=== PATIENT | female | born 1990 | race American Indian/Alaskan Native ===

== ENCOUNTER 2019-12-08 05:34 | Day surgery (SDC) | payer BC, OTHER ==
--- NOTE | 2019-12-07 17:23 | Short Stay Summary ---
Short Stay Documentation Date of service: 12/08/19 Narrative H&P: 29y/o with a history of worsening pelvic pain. The patient had imaging that demonstrated bilateral dermoid cysts measuring 7 and 10cm respectively. The patient attempted expectant management without resolution of her symptoms. Patient has been reassessed/reevaluated/re-examined. H&P has been reviewed. No interval changes. - History Principal diagnosis: Dermoid cysts Past Medical History: No medical history Past Surgical History: , Other (foot surgery) Social history: - Allergies and Medications Current Medications: Allergies No Known Allergies Allergy (Verified 12/07/19 11:24) Home Medications Medication Instructions Recorded Confirmed Last Taken Type Multivitamin [One-Daily 1 each PO DAILY 12/07/19 12/07/19 Unknown History Multi-Vitamin] Active Medications Celecoxib (Celebrex) 200 mg PO PREOP NR Stop: 12/08/19 23:59 Gabapentin (Gabapentin) 600 mg PO PREOP NR Stop: 12/08/19 23:59 Lactated Ringer's (Lactated Ringers) 1,000 mls @ 100 mls/hr IV DIRECT DELIA Stop: 12/08/19 23:59 Magnesium Oxide (Mag-Ox) 400 mg PO PREOP DELIA Stop: 12/08/19 23:59 Midazolam HCl (Versed) 2 mg IV PREOP NR Stop: 12/08/19 23:59 Scopolamine (Transderm-Scop) 1 each TD PREOP NR Stop: 12/08/19 23:59 - Physical exam General appearance: no acute distress Integumentary: no rash HEENT: Atraumatic Lungs: Clear to auscultation Breasts: deferred Heart: Regular rate Gastrointestinal: normal Female Genitourinary: deferred Rectal Exam: deferred Extremities: no ischemia - Brief post op/procedure progress note Date of procedure: 12/08/19 Pre-op diagnosis: Bilateral adnexal masses Post-op diagnosis: same Procedure: Robotic assisted ovarian cystectomy Anesthesia: MELONY Surgeon: TAWNYA SZYMANSKI Estimated blood loss: other (300 mL) Pathology: list (Dermoid cyst) Specimen disposition: to lab Condition: stable - Hospital course Hospital course: The patient was admitted the day of surgery underwent a robotic assisted bilateral ovarian cystectomy. Please see operative note for details of surgery. Her postoperative course was uneventful. - Disposition Condition at discharge: Good Disposition: [id number] TO HOME OR SELFCARE - Discharge Diagnoses (1) Dermoid cyst Status: Acute Short Stay Discharge Plan Activity: other (Pelvic rest for 1 week) Diet: regular Additional Instructions: Schedule follow-up with Dr. Szymanski in 2 to 4 weeks Prescriptions: Ibuprofen [Motrin] 800 mg PO Q8HR PRN #60 tablet PRN Reason: Pain , Severe (7-10) oxyCODONE /ACETAMINOPHEN [Percocet 5/325] 1 tab PO Q6HR PRN #20 tablet PRN Reason: Pain
[~2019-12-08 05:34] MED LIST: ceFAZolin/Water 2 GM/20 ML 2 GM/20 ML SYRINGE IV NR
[2019-12-08] MEDS ORDERED: MAGNESIUM OXIDE 400 MG TAB PO SCH (06:00)
[2019-12-08] MEDS ORDERED: CELECOXIB 200 MG CAP PO NR (06:00)
[2019-12-08] MEDS ORDERED: LACTATED RINGERS 1,000 ML IV SCH (06:00)
[2019-12-08] MEDS ORDERED: GABAPENTIN 300 MG CAP PO NR (06:00)
[2019-12-08] MEDS ORDERED: MIDAZOLAM 2 MG/2 ML INJ IV NR (06:00)
[2019-12-08] MEDS ORDERED: SCOPOLAMINE TRANSDERMAL PATCH 72 HR TD NR (06:00)
[2019-12-08] MEDS ORDERED: FAMOTIDINE 20 MG/2 ML INJ IV NR (07:18)
--- NOTE | 2019-12-08 07:18 | Anesthesia Consultation ---
Anesthesia Consult and Med Hx Date of service: 12/08/19 - Airway Anesthetic Teeth Evaluation: Good ROM Head & Neck: Adequate Mental/Hyoid Distance: Adequate Mallampati Class: Class II Intubation Access Assessment: Probably Good - Pre-Operative Health Status ASA Pre-Surgery Classification: ASA2 Proposed Anesthetic Plan: General - Pulmonary Hx Smoking: Yes (Former) Hx Asthma: Yes (Excercise induced, Last treated 4 years ago) - Central Nervous System Hx Psychiatric Problems: No - Hematic Hx Sickle Cell Disease: Yes (Trait only) - Other Systems Hx Alcohol Use: Yes (Occas) Hx Cancer: No Hx Obesity: Yes (BMI 34.5)
--- NOTE | 2019-12-08 07:18 | Anesthesia Day of Surgery ---
Anesthesia Day of Surgery - Day of Surgery Patient Examined: Yes Patient H&P Reviewed: Yes Patient is NPO: Yes
[2019-12-08] MEDS ORDERED: propofoL 200 MG/20 ML VIAL IV ONE (07:21)
[2019-12-08] MEDS ORDERED: LIDOCAINE MPF (2%) 20 MG/1 ML VIAL 5 ML ONE (07:21)
[2019-12-08] MEDS ORDERED: HYDROmorphone 1 MG/1 ML INJ ONE (07:21)
[2019-12-08] MEDS ORDERED: HYDROmorphone 1 MG/1 ML INJ IV PRN (07:22)
[2019-12-08] MEDS ORDERED: ONDANSETRON 4 MG/2 ML INJ IV PRN (07:22)
[2019-12-08] MEDS ORDERED: ROCURONIUM 50 MG/5 ML INJ IV ONE ×2 (07:22→08:33)
[2019-12-08] MEDS ORDERED: BUPIVACAINE/PF (0.5%) 5 MG/1 ML 30 ML VIAL INFILTRATI ONE ×3 (07:24→08:46)
[2019-12-08] MEDS ORDERED: NEOMY 40 MG/POLYMYXIN B 200,000 UNITS/ML (GU) AMPULE IR ONE (07:25)
[2019-12-08] MEDS ORDERED: PHENYLEPHRINE/NS 1,000 MCG/10 ML SYRINGE (OR USE) IV ONE (08:08)
[2019-12-08] MEDS ORDERED: SODIUM CHLORIDE 0.9% IRR 1,500 ML BOTTLE IR ONE (08:46)
[2019-12-08] MEDS ORDERED: SODIUM CHLORIDE 0.9% IRRIG SOLN 2000 ML IR ONE (08:46)
[2019-12-08] MEDS ORDERED: GLYCOPYRROLATE 0.4 MG/2 ML INJ ONE (09:42)
[2019-12-08] MEDS ORDERED: NEOSTIGMINE 10MG/10 ML INJ MDV ONE (09:42)
[2019-12-08] MEDS ORDERED: ONDANSETRON 4 MG/2 ML INJ ONE (09:42)
[2019-12-08] MEDS ORDERED: KETOROLAC 30 MG/1 ML INJ ONE (09:42)
--- NOTE | 2019-12-08 09:50 | Operative Report ---
Operative Report Operative Report: Date of surgery: December 08, 2019 Preoperative diagnoses: Bilateral dermoid cysts; chronic pelvic pain Postoperative diagnoses: Same as above Procedure: Robotic assisted bilateral ovarian cystectomy Surgeon: Karine Montoya M.D. Price Economist: Neli Garzon Anesthesia: Gen. endotracheal anesthesia Estimated blood loss: 300 mL Pathology: Dermoid cyst Indication: 29-year-old -1-1-1 with a history of chronic pelvic pain and bilateral dermoid cyst. Pelvic ultrasound demonstrated a 7 cm and 10 cm bilateral ovarian dermoid tumors. Procedure: The patient was taken to the operating room and given general endotracheal anesthesia without complication. She is prepped and draped in a normal sterile fashion. A bivalve speculum was placed in the patient's vagina and a single- tooth tenaculum placed on the anterior lip of the cervix. The uterus was sounded with the uterine sound. A Cat Amania uterine manipulator was placed in the bivalve speculum was then removed. Attention was then turned to the patient's abdomen where a millimeter supra umbilical skin incision was then made. A Pete ess needle was placed and peritoneal entry was verified water-filled syringe. Insufflation of the peritoneal cavity was performed with CO2 gas. The 12 mm trocar was then placed under direct visualization. An additional 8 mm trocar was placed on the patient's left and right lateral side just opposite of the supraumbilical trocar. An additional 12mm right lateral trocar was then placed as the accessory port. The supraumbilical 12 mm trocar site and the right lateral accessory port were closed with the Jhonny Kamara device and 0-vicryl suture. The patient was then placed in steep Trendelenburg. The da [place]ira robot was then engaged. A fenestrated forcep was placed in arm 2 and a monopolar scissors were placed in arm 1. General survey of the abdomen and pelvis revealed markedly enlarged bilateral ovaries consistent with dermoid tumors. The uterus was normal in size and contour. The surgeon then transferred to the surgical console. The fenestrated bipolar grasper was used to elevate the left ovary. The monopolar scissors were used to create an incision in the ovarian cortex. There was copious amount of fatty tissue and multiple victoria of hair. The ovary was multiloculated with multiple pockets of adipose filled areas. The cyst wall was densely adherent to the ovary. Monopolar scissors were used to excise the abnormal tissue. A Endo Catch bag was placed through the accessory port in order to remove the ovarian tissue. Attention was then turned to the patient's right ovary where the similar procedure was performed where the ovarian cortex was excised with the monopolar scissors. Again there was evidence of copious amount of fatty tissue and hair. The ovarian cyst wall was excised. The tissue was removed through the 12 mm trocar. Copious irrigation of the pelvis was performed. Hemoblast was applied to the ovaries. There was no evidence of any active bleeding at the conclusion of the case. The da [place]ira robot was then disengaged. The trocars were then removed. The skin was then reapproximated with 4-0 Monocryl. The tissue was sent to pathology which included dermoid cyst. The patient was then successfully extubated. She was then taken to the recovery room in stable condition. All sponge laps and needle counts were correct x2.
[2019-12-08] MEDS ORDERED: oxyCODONE /ACETAMINOPHEN 5-325MG TAB PO NR (10:56)
[2019-12-08] MEDS ORDERED: oxyCODONE /ACETAMINOPHEN 5-325MG TAB ONE (10:59)
[2019-12-08 11:12] VITALS: BP 129/82
--- NOTE | 2019-12-08 14:16 | Post Anesthesia Evaluation ---
- Post Anesthesia Evaluation Patient Participated: Yes Airway Patent: Yes Stable Respiratory Function: Yes Nausea/Vomiting: No Temp > 96.8F: Yes Pain Manageable: Yes Adequeate Hydration: Yes Anesthesia Complications: No
== END 2019-12-08 05:35 | disposition home or self-care (01) ==
LOC: OR 05:34
PROVIDERS: ATTEND Obstetrics & Gynecology
DX: D27.1 Benign neoplasm of left ovary (principal); D27.0 Benign neoplasm of right ovary; Z79.899 Other long term (current) drug therapy; Z87.891 Personal history of nicotine dependence; G43.909 Migraine, unspecified, not intractable, without status migrainosus; J45.909 Unspecified asthma, uncomplicated; Z98.891 History of uterine scar from previous surgery; Z72.89 Other problems related to lifestyle; Z98.890 Other specified postprocedural states; Z86.2 Personal history of diseases of the blood and blood-forming organs and certain disorders involving the immune mechanism
CPT/HCPCS: 58662; 81025; 88305; 88311; A4217; J0690; J1170; J1885; J2250; J2370; J2405; J2704; J2710; J7120; S2900